=== PATIENT | female | born 1945 | race Caucasian/White ===

== ENCOUNTER 2019-12-20 06:36 | Inpatient (IN) | payer OTHER, MEDICARE ==
--- NOTE | 2019-12-20 07:48 | PDOC ---
History of Present Illness - General Chief Complaint: Pain, Acute Stated Complaint: R ARM NUMBNESS Time Seen by Provider: 12/20/19 07:13 - History of Present Illness Initial Comments: 12/20/19 07:47 74yo F with PMH HTN, HLD, GERD, migranes with aura, fibromyalgia, costochondritis, anxiety, presents follow an episode this morning of right arm numbness, left facial droop, and difficulty speaking, since resolved. Still complains of right hand numbness. She states she awoke at 6 and noticed her right arm was weak. She took a sip of water and it dibbled out of her mouth. She also had difficulty speaking. She has a stroke magnet on her fridge and decided to come to the hospital. Denies headache, chest pain, palpitations. States her aura is different -- she sees squiggles. PMH: as above PSH: hysterectomy Home Medications Medication Instructions Recorded Amlodipine Besylate [Norvasc -] 0 mg PO DAILY 12/20/19 Aspirin 81 mg PO Q4HWA 12/20/19 Atorvastatin Ca [Lipitor] 0 mg PO HS 12/20/19 Pantoprazole Sodium [Protonix] 40 mg PO PRN 12/20/19 Allergies Allergy/AdvReac Type Severity Reaction Status Date / Time No Known Allergies Allergy Verified 12/20/19 06:55 PCP: Eddie (not on staff) ROS GENERAL/CONSTITUTIONAL: No fever or chills. No weakness. HEAD, EYES, EARS, NOSE AND THROAT: No change in vision. No ear pain or discharge. No sore throat. CARDIOVASCULAR: No chest pain or shortness of breath RESPIRATORY: No cough, wheezing, or hemoptysis. GASTROINTESTINAL: No nausea, vomiting, diarrhea or constipation. GENITOURINARY: No dysuria, frequency, or change in urination. MUSCULOSKELETAL: No joint or muscle swelling or pain. No neck or back pain. SKIN: No rash NEUROLOGIC: right arm numbness, facial droop, and difficulty speaking ENDOCRINE: No increased thirst. No abnormal weight change HEMATOLOGIC/LYMPHATIC: No anemia, easy bleeding, or history of blood clots. ALLERGIC/IMMUNOLOGIC: No hives or skin allergy. PE GENERAL: Awake, alert, and fully oriented, in no acute distress HEAD: No signs of trauma, normocephalic, atraumatic EYES: PERRLA, EOMI, sclera anicteric, conjunctiva clear ENT: Auricles normal inspection, hearing grossly normal, nares patent, oropharynx clear without exudates. Moist mucosa NECK: Normal ROM, supple, no lymphadenopathy, JVD, or masses LUNGS: No distress, speaks full sentences, clear to auscultation bilaterally HEART: Regular rate and rhythm, normal S1 and S2, no murmurs, rubs or gallops, peripheral pulses normal and equal bilaterally. ABDOMEN: Soft, nontender, normoactive bowel sounds. No guarding, no rebound. No masses EXTREMITIES : Normal inspection, Normal range of motion, no edema. No clubbing or cyanosis. NEUROLOGICAL: Cranial nerves II through XII grossly intact. Normal speech, normal gait, no focal sensorimotor deficits. Reduced sensation on right palmar and dorsal first-third digits. Normal strength, normal sensation proximally. SKIN: Warm, Dry, normal turgor, no rashes or lesions noted Vital Signs Temp Pulse Resp BP Pulse Ox 98.3 F 108 H 18 142/90 99 12/20/19 06:52 12/20/19 06:52 12/20/19 06:52 12/20/19 06:52 12/20/19 06:52 MDM: 74yo F with PMH HTN, HLD, GERD, migranes with aura, fibromyalgia, costochondritis, anxiety, presents follow an episode this morning of right arm numbness, facial droop, and difficulty speaking, since resolved. Still complains of right hand numbness, and has reduced sensation on right palmar and dorsal first-third digits. NIH stroke scale 0, last known well was last night at 10:30pm. Recent brain MRI for hearing complaint shows evidence of cerebrovascular disease. DDx includes TIA, periferal nerve palsy, ICH, anxiety -CT head -EKG, CXR, CBC, CMP, coags, lipids -neuro consult 12/20/19 08:41 EKG: NSR, rate 75, normal axis, LVH, poor r-wave progression, no ischemic ST-T wave changes Labs: no acute abnormalities CXR: no acute pathology CT head: microvascular changes, but no acute pathology 12/20/19 09:50 Signed out to admitting attending who accepted the patient. 12/20/19 09:[address] Foley who recommends daily aspirin and MRI brain w/o contrast (stroke protocol). Patient has not taken her meds this morning, so will order for aspirin 81 and atorvastain 80 NIH Stroke Scale - Last Known Well Date/Time & Onset Date Last Known Well: 12/19/19 Time Last Known Well: 10:30 - Initial Evaluation Level of consciousness: Alert Ask patient the month and their age: Answers both correctly Ask patient to open & close eyes; make fist and let go: Obeys both correctly Best gaze (horizontal eye movement): Normal Visual field testing: No visual field loss Facial paresis (Show teeth/raise eyebrows/close eyes tight): Normal symmetrical movement Motor Function: Left Arm: Normal Motor Function: Right Arm: Normal (extends arm 90 (or 45) degrees for 10 seconds without drift Motor Function: Left Leg: Normal (extends leg 30 degrees for 5 seconds without drift) Motor Function: Right Leg: Normal (extends leg 30 degrees for 5 seconds without drift) Limb Ataxia: No ataxia Sensory(Use pinprick test arms,legs,trunk,face/side to side): Normal Best language (Describe picture, name items, read sentences): No Aphasia Dysarthria (read several words): Normal articulation Extinction and Inattention: No abnormality - Total Score NIH Stroke Scale Score: 0 Past History - Medical History Allergies/Adverse Reactions: Allergies Allergy/AdvReac Type Severity Reaction Status Date / Time No Known Allergies Allergy Verified 12/20/19 06:55 Home Medications: Ambulatory Orders Amlodipine Besylate [Norvasc -] 0 mg PO DAILY 12/20/19 Aspirin 81 mg PO Q4HWA 12/20/19 Atorvastatin Ca [Lipitor] 0 mg PO HS 12/20/19 Pantoprazole Sodium [Protonix] 40 mg PO PRN 12/20/19 COPD: No HTN: Yes Hypercholesterolemia: Yes - Immunization History Immunization Up to Date: No - Psycho-Social/Smoking History Smoking History: Never smoked Information on smoking cessation initiated: No - Substance Abuse Hx (Audit-C & DAST Scrn) How often the patient has a drink containing alcohol: Never Score: In Men: 4 or > Positive; In Women: 3 or > Positive: 0 Screen Result (Pos requires Nsg. Audit-10AR): Negative In the last yr the pt used illegal drug/Rx for NonMed reason: No Score: Yes response is considered Positive: 0 Screen Result (Positive result requires Nsg. DAST-10): Negative *Physical Exam - Vital Signs Last Vital Signs Temp Pulse Resp BP Pulse Ox 98.3 F 108 H 18 142/90 99 12/20/19 06:52 12/20/19 06:52 12/20/19 06:52 12/20/19 06:52 12/20/19 06:52 ED Treatment Course - LABORATORY CBC & Chemistry Diagram: 12/20/19 08:05 12/20/19 08:05 - RADIOLOGY Radiology Studies Ordered: Category Date Time Status HEAD CT (STROKE) [CT] Stat CT Scan 12/20/19 07:40 Ordered CXR [CHEST PA & LAT] [RAD] Stat Radiology 12/20/19 07:45 Ordered Discharge - Discharge Information Problems reviewed: Yes Clinical Impression/Diagnosis: TIA (transient ischemic attack) Condition: Fair - Admission Yes - Follow up/Referral - Patient Discharge Instructions - Post Discharge Activity
--- NOTE | 2019-12-20 08:38 | PDOC ---
Attending Attestation - Resident Resident Name: [email or web address] - ED Attending Attestation I have performed the following: I have examined & evaluated the patient, The case was reviewed & discussed with the resident, I agree w/resident's findings & plan - HPI HPI: 12/20/19 08:33 74-year-old female with history of hypertension, high cholesterol, anxiety presents with concern for TIA/CVA this morning. Patient was in her usual state of normal health until last night around 10:30 PM, when she went to sleep. Patient awoke around 6 AM, initially noticed some difficulty swallowing, then stood up to go to the restroom to get some water and felt a right arm numbness/heaviness, when she was drinking water she felt asymmetry in her face and the water was spilling out of her mouth, she went to call her and was unable to speak. She recognized this is concerning for a stroke so they presented to the hospital, where symptoms resolved just prior to arrival. The entire episode lasted about 30 minutes. No history of same, she did have MRI on 10/27/2019 in the setting of hearing disturbance, that MRI noted scattered microvascular ischemic disease without acute infarct at the time. Patient denies any headache or vision changes, denies any nausea or vomiting, has no complaints at this time other than slight residual tingling in the ulnar nerve distribution of her right hand. - Physicial Exam PE: 12/20/19 08:35 Vital signs stable Well-appearing lying comfortably in stretcher, slightly anxious but in no acute distress Pupils are equal reactive to light, extraocular movements are intact Neck is supple Heart is regular Neurological exam is nonfocal - Medical Decision Making 12/20/19 08:36 74-year-old female with TIA/CVA type symptoms upon awakening this morning at 6 AM, last known normal about 8 hours prior to that. Symptoms have completely resolved with NIHSS of 0 at this time. Given complete resolution of symptoms and no neurological deficits, patient is not candidate for TPA or mechanical thrombectomy. Patient did have echo and nuclear stress with Dr. Nolasco this year. Stroke protocol initiated Neurology consulted We will need admission for complete stroke work-up and optimization of medications. Heart Score/ECG Review #1 ECG reviewed & interpreted by me at: 08:59 General ECG Interpretation: Sinus Rhythm, Normal Rate (75), Normal Intervals (qtc 442, LVH), No acute ischemic changes (? anterior infarct with prwp, no ST/T changes) Discharge - Discharge Information Problems reviewed: Yes Clinical Impression/Diagnosis: TIA (transient ischemic attack) Condition: Fair - Follow up/Referral - Patient Discharge Instructions - Post Discharge Activity
[2019-12-20 08:45] LABS: INR 0.92 (0.83-1.09); PROTHROMBIN TIME (PATIENT) 10.8 SEC (9.7-13.0)
[2019-12-20 08:48] LABS: ACTIVATED PTT 29.5 SECONDS (25.2-36.5)
[2019-12-20 08:54] LABS: BASO % 0.6 % (0-2.0); EOS % 3.5 % (0-4.5); HEMATOCRIT 44.3 % (32.4-45.2); HEMOGLOBIN 14.8 GM/dL (10.7-15.3); LYMPH % 23.3 % (8-40); MCH 28.9 pg (25.7-33.7); MCHC 33.4 g/dl (32.0-36.0); MEAN CELL VOLUME 86.6 fl (80-96); MEAN PLT VOLUME 6.9 fl (7.5-11.1); MONO % 7.4 % (3.8-10.2); NEUT % 65.2 % (42.8-82.8); PLATELET COUNT 310 K/MM3 (134-434); RBC 5.11 M/mm3 (3.60-5.2); RDW 13.7 % (11.6-15.6); WHITE BLOOD COUNT 7.8 K/mm3 (4.0-10.0)
[2019-12-20 09:10] LABS: ALBUMIN 3.7 g/dl (3.4-5.0); ALK PHOS 104 U/L (45-117); ANION GAP 6 MMOL/L (8-16); BILIRUBIN,TOTAL 0.8 mg/dL (0.2-1); BLOOD UREA NITROGEN 14.2 mg/dL (7-18); CHLORIDE 111 mmol/L (98-107); CHOLESTEROL 169 mg/dL (50-200); CO2 27 mmol/L (21-32); CREATININE 0.9 mg/dL (0.55-1.3); GLUCOSE,RANDOM 95 mg/dL (74-106); HDL CHOLESTEROL 52 mg/dL (40-60); LDL CHOLESTEROL (ONLY SJRH) 103 mg/dL (5-100); POTASSIUM 4.3 mmol/L (3.5-5.1); SGOT/AST 52 U/L (15-37); SGPT/ALT 28 U/L (13-61); SODIUM 144 mmol/L (136-145); TOT PROT 7.4 g/dl (6.4-8.2); TRIGLYCERIDES 99 mg/dL (0-150)
--- NOTE | 2019-12-20 10:01 | HP ---
Admitting History and Physical - Admission Chief Complaint: Acute right arm numbness, facial droop and difficulty in spea jamie History of Present Illness: This 74 yr old w/f with PMH of HTN, HLD, GERD, migraine with aura, fibromyalgia, costochondritis, anxiety admitted with an acute right sided weakness, left facial droop and difficulty in speaking. 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 Cardiovascular: Yes: HTN, Hyperlipdemia Pulmonary: No: Asthma, Bronchitis, Cancer, COPD, O2 Dependent, Pneumonia, Previously Intubated, Pulmonary Embolus, Pulmonary Fibrosis, Sleep Apnea, Other Gastrointestinal: Yes: GERD Hepatobiliary: No: Cirrhosis, Cholelithiasis, Cholecystitis, Choledocholithiasis, Hepatitis A, Hepatitis B, Hepatitis C, Other Renal/: No: Renal Failure, Renal Inusuff, BPH, Cancer, Hematuria, Hemodialysis, Neurogenic Bladder, Renal Calculi, UTI, Other Reproductive: No: Ectopic , Endometriosis, Fibroids, PID, Polycystic Ovary Syndrome, Postmenopausal, Other Heme/Onc: No: Anemia, B12 Deficiency, Bleeding Disorder, Cancer, Current Chemotherapy, Current Radiation Therapy, Hemochromatosis, Hypercoaguable State, Myeloproliferative Synd, Sickle Cell Disease, Sickle Cell Trait, Thrombocytopenia, Other Infectious Disease: No: AIDS, C-Diff, Herpes Zoster, HIV, MRSA, STD's, Tuberculosis, VREF, Other Psych: Yes: Anxiety Musculoskeletal: No: Bursitis, Chronic low back pain, Hemiparesis, Hemiplegia, Osteoarthritis, Paraplegia, Other Rheumatology: Yes: Fibromyalgia ENT: No: Allergic Rhinitis, Sinusitis, Other Endocrine: No: Tom's Disease, [place]'s Disease, Diabetes Insipidus, Diabetes Mellitus, Hyperparathyroidism, Hyperthyroidism, Hypothyroidism, Osteopenia, SIADH, Other Dermatology: No: Basal Cell, Cellulitis, Eczema, Melanoma, Psoriasis, Squamous Cell, Other - Past Surgical History Past Surgical History: Yes: Hysterectomy (total), Tonsillectomy - Advance Directives Advance Directives: No: Living Will, Health Care Proxy, DNR, Organ Donor, Tissue Donor, MOLST - Smoking History Smoking history: Never smoked - Social History Usual Living Arrangement: Yes: With Spouse Home Medications - Allergies Allergies/Adverse Reactions: Allergies Allergy/AdvReac Type Severity Reaction Status Date / Time No Known Allergies Allergy Verified 09/22/20 06:55 - Home Medications Home Medications: Ambulatory Orders Amlodipine Besylate [Norvasc -] 0 mg PO DAILY 12/20/19 Aspirin 81 mg PO Q4HWA 12/20/19 Atorvastatin Ca [Lipitor] 0 mg PO HS 12/20/19 Pantoprazole Sodium [Protonix] 40 mg PO PRN 12/20/19 Review of Systems - Review of Systems Constitutional: reports: Weakness (right sided weakness) Eyes: reports: No Symptoms HENT: reports: No Symptoms Neck: reports: Stiffness Cardiovascular: reports: No Symptoms Respiratory: reports: No Symptoms Gastrointestinal: reports: No Symptoms Genitourinary: reports: No Symptoms Breasts: reports: No Symptoms Reported Musculoskeletal: reports: Muscle Weakness (right arm weakness) Integumentary: reports: No Symptoms Neurological: reports: Change in Speech, Numbness (right hand), Weakness (right arm) Endocrine: reports: No Symptoms Hematology/Lymphatic: reports: No Symptoms Psychiatric: reports: Anxiety Physical Examination Vital Signs: Vital Signs Temperature 98.3 F 12/20/19 06:52 Pulse Rate 108 H 12/20/19 06:52 Respiratory Rate 18 12/20/19 06:52 Blood Pressure 142/90 12/20/19 06:52 O2 Sat by Pulse Oximetry (%) 99 12/20/19 06:52 Constitutional: Yes: Well Nourished, No Distress, Anxious Eyes: Yes: Conjunctiva Clear, EOM Intact HENT: Yes: Atraumatic, Normocephalic Neck: Yes: Supple, Trachea Midline Cardiovascular: Yes: Regular Rate and Rhythm Respiratory: Yes: Regular, CTA Bilaterally Gastrointestinal: Yes: Normal Bowel Sounds, Soft ...Rectal Exam: Yes: Deferred Renal/: Yes: WNL Breast(s): Yes: WNL Musculoskeletal: Yes: Muscle Weakness (right arm) Extremities: Yes: WNL Edema: Yes Edema: LLE: Trace, RLE: Trace Peripheral Pulses WNL: Yes Integumentary: Yes: WNL Neurological: Yes: Alert, Oriented, Facial Droop (left), Numbness (right hand), Weakness (right arm) ...Motor Strength: RUE (right arm weakness) Psychiatric: Yes: Alert, Oriented Labs: CBC, BMP 12/20/19 08:05 12/20/19 08:05 Imaging - Results Chest X-ray: Report Reviewed Cat Scan: Report Reviewed Other: Report Reviewed (lab data reviewed) Problem List - Problems (1) Facial droop due to acute stroke Code(s): I63.9 - CEREBRAL INFARCTION, UNSPECIFIED; R29.810 - FACIAL WEAKNESS (3) Right arm weakness Code(s): R29.898 - OTH SYMPTOMS AND SIGNS INVOLVING THE MUSCULOSKELETAL SYSTEM (4) TIA (transient ischemic attack) Code(s): G45.9 - TRANSIENT CEREBRAL ISCHEMIC ATTACK, UNSPECIFIED (5) Essential (primary) hypertension Code(s): I10 - ESSENTIAL (PRIMARY) HYPERTENSION (6) HLD (hyperlipidemia) Code(s): E78.5 - HYPERLIPIDEMIA, UNSPECIFIED (7) Migraine with aura Code(s): G43.109 - MIGRAINE WITH AURA, NOT INTRACTABLE, W/O STATUS MIGRAINOSUS (8) Fibromyalgia Code(s): M79.7 - FIBROMYALGIA (9) History of tonsillectomy Code(s): Z90.89 - ACQUIRED ABSENCE OF OTHER ORGANS (10) History of total hysterectomy with bilateral salpingo-oophorectomy (BSO) Code(s): Z90.710 - ACQUIRED ABSENCE OF BOTH CERVIX AND UTERUS; Z90.722 - ACQUIRED ABSENCE OF OVARIES, BILATERAL; Z90.79 - ACQUIRED ABSENCE OF OTHER GENITAL ORGAN(S) (11) Numbness of right hand Code(s): R20.0 - ANESTHESIA OF SKIN Assessment/Plan Assessment/plan: acute stroke with left facial droop, difficulty in speaking, right arm weakness, and numbness of the right hand, HTN, HLD, migraine with aura, fibromyalgia, anxiety; ct scan of the head shows moderate periventricular chronic microvascular changes; carotid duplex scan; SQ Lovenox, aspirin, and atorvastatin for acute stroke; SQ Lovenox aspirin and oral pantoprazole for DVT/GI prophlaxis; alprazolam for anxiety; consult to Neurology; stroke rehab, EARLENE stockings.
[2019-12-20] MEDS ORDERED: ASPIRIN 81 MG CHEWABLE TABLETS PO ONE (10:04)
[2019-12-20] MEDS ORDERED: ATORVASTATIN CA 80 MG TABLET (FP) PO ONE (10:04)
[2019-12-20] MEDS ORDERED: ALPRAZolam 0.25 MG TABLET ONE (10:27)
[2019-12-20] MEDS ORDERED: ATORVASTATIN CA 80 MG TABLET (FP) ONE (10:27)
[2019-12-20] MEDS ORDERED: ASPIRIN 81 MG CHEWABLE TABLETS ONE (10:27)
[2019-12-20] MEDS: ALPRAZolam 1 MG TABLET PO ONE ×2 (10:32)
[2019-12-20] MEDS ORDERED: amLODIPine BESYLATE 5 MG TABLET (FP) ONE (11:58)
[2019-12-20] MEDS ORDERED: ENOXAPARIN NA (PORCINE) 40 MG/0.4 ML DISP.SYRIN SQ ONE (11:59)
[2019-12-20] MEDS ORDERED: ENOXAPARIN NA (PORCINE) 40 MG/0.4 ML DISP.SYRIN SQ SCH (12:00)
[2019-12-20] MEDS: PANTOPRAZOLE 40 MG TABLET PO SCH ×2 (12:22→12:35)
[2019-12-20] MEDS: amLODIPine BESYLATE 5 MG TABLET (FP) PO SCH (12:22)
[2019-12-20] MEDS ORDERED: ACETAMINOPHEN 325 MG TABLET (FP) PO PRN (20:47)
[2019-12-20] MEDS: ALPRAZolam 0.25 MG TABLET PO PRN (21:13)
[2019-12-21 02:57] VITALS: BMI 27.2
[2019-12-21] MEDS ORDERED: CLOPIDOGREL BISULFATE 300 MG TABLET PO ONE (06:17)
[2019-12-21 06:37] LABS: BASO % 0.9 % (0-2.0); EOS % 6.9 % (0-4.5); HEMATOCRIT 40.3 % (32.4-45.2); HEMOGLOBIN 13.9 GM/dL (10.7-15.3); LYMPH % 38.4 % (8-40); MCH 30.1 pg (25.7-33.7); MCHC 34.5 g/dl (32.0-36.0); MEAN CELL VOLUME 87.2 fl (80-96); MEAN PLT VOLUME 7.1 fl (7.5-11.1); MONO % 12.1 % (3.8-10.2); NEUT % 41.7 % (42.8-82.8); PLATELET COUNT 277 K/MM3 (134-434); RBC 4.62 M/mm3 (3.60-5.2); RDW 13.9 % (11.6-15.6); WHITE BLOOD COUNT 6.1 K/mm3 (4.0-10.0)
[2019-12-21 06:51] LABS: ALBUMIN 3.2 g/dl (3.4-5.0); BILIRUBIN,TOTAL 0.8 mg/dL (0.2-1); BLOOD UREA NITROGEN 17.3 mg/dL (7-18); CALCIUM 8.8 mg/dL (8.5-10.1); CREATININE 0.9 mg/dL (0.55-1.3); POTASSIUM 3.6 mmol/L (3.5-5.1); TOT PROT 6.4 g/dl (6.4-8.2)
--- NOTE | 2019-12-21 08:37 | PN ---
Progress Note, Physician Chief Complaint: Patient seen and examined at the bedside, no acute events from last night, afebrile, left facial droop less noticeable. History of Present Illness: This 74 yr old w/f with PMH of HTN, HLD, fibromyalgia, anxiety, migraine with aura, GERD admitted via ER with an acute TIA, right arm weakness, numbness of the right hand, left facial droop and difficulty in speaking. - Current Medication List Current Medications: Active Medications Acetaminophen (Tylenol -) 650 mg PO Q6H PRN PRN Reason: PAIN LEVEL 1-5 Last Admin: 12/20/19 21:13 Dose: 650 mg Documented by: Alprazolam (Xanax -) 0.25 mg PO Q8H PRN PRN Reason: ANXIETY Last Admin: 12/20/19 21:13 Dose: 0.25 mg Documented by: Amlodipine Besylate (Norvasc -) 5 mg PO DAILY [facility] Last Admin: 12/20/19 12:22 Dose: 5 mg Documented by: Aspirin (Ecotrin -) 81 mg PO DAILY [facility] Atorvastatin Calcium (Lipitor -) 80 mg PO HS [facility] Clopidogrel Bisulfate (Plavix -) 75 mg PO DAILY [facility] - Objective Vital Signs: Vital Signs Temperature 98.5 F 12/21/19 06:00 Pulse Rate 64 12/21/19 06:00 Respiratory Rate 18 12/21/19 06:00 Blood Pressure 123/61 12/21/19 06:00 O2 Sat by Pulse Oximetry (%) 96 12/21/19 06:00 Constitutional: Yes: Well Nourished, No Distress, Anxious Eyes: Yes: Conjunctiva Clear, EOM Intact HENT: Yes: Atraumatic, Normocephalic Neck: Yes: Supple, Trachea Midline Cardiovascular: Yes: Regular Rate and Rhythm Respiratory: Yes: Regular, CTA Bilaterally Gastrointestinal: Yes: Normal Bowel Sounds, Soft ...Rectal Exam: Yes: Deferred Genitourinary: Yes: WNL Breast(s): Yes: WNL Musculoskeletal: Yes: Muscle Weakness Extremities: Yes: WNL Edema: No Peripheral Pulses WNL: Yes Integumentary: Yes: WNL Neurological: Yes: Alert, Facial Droop (left), Unsteady Gait, Weakness ...Motor Strength: LLE (muscle weakness), RLE (muscle weakness) Psychiatric: Yes: Alert Labs: CBC, BMP 09/23/20 05:15 12/21/19 05:15 INR, PTT INR 0.92 (0.83-1.09) 12/20/19 08:05 - ....Imaging Other: Report Reviewed (lab data reviewed) Problem List - Problems (1) Facial droop due to acute stroke Code(s): I63.9 - CEREBRAL INFARCTION, UNSPECIFIED; R29.810 - FACIAL WEAKNESS (3) Right arm weakness Code(s): R29.898 - OTH SYMPTOMS AND SIGNS INVOLVING THE MUSCULOSKELETAL SYSTEM (4) TIA (transient ischemic attack) Code(s): G45.9 - TRANSIENT CEREBRAL ISCHEMIC ATTACK, UNSPECIFIED (5) Essential (primary) hypertension Code(s): I10 - ESSENTIAL (PRIMARY) HYPERTENSION (6) HLD (hyperlipidemia) Code(s): E78.5 - HYPERLIPIDEMIA, UNSPECIFIED (7) Migraine with aura Code(s): G43.109 - MIGRAINE WITH AURA, NOT INTRACTABLE, W/O STATUS MIGRAINOSUS (8) Fibromyalgia Code(s): M79.7 - FIBROMYALGIA (9) History of tonsillectomy Code(s): Z90.89 - ACQUIRED ABSENCE OF OTHER ORGANS (10) History of total hysterectomy with bilateral salpingo-oophorectomy (BSO) Code(s): Z90.710 - ACQUIRED ABSENCE OF BOTH CERVIX AND UTERUS; Z90.722 - ACQUIRED ABSENCE OF OVARIES, BILATERAL; Z90.79 - ACQUIRED ABSENCE OF OTHER GENITAL ORGAN(S) (11) Numbness of right hand Code(s): R20.0 - ANESTHESIA OF SKIN Assessment/Plan Assessment/plan: aspirin clopidogrel and atorvastatin for acute stroke (8mm focus of acute/subacute cortical small vessel infarction of the left parietal lobe), multiple foci of chronic small vessel infarction in the periventricular white matter, HTN, HLD, GERD, anxiety, fibromyalgia; EARLENE stockings; tylenol for migraine; stroke rehab; amlodipine for HTN; atorvastatin for HLD; alprazolam for anxiety, aspiration precautions.
--- NOTE | 2019-12-21 08:42 | CONSULT ---
Consult - text type - Consultation Consultation Note: Neurology Chief Complaint: Acute right arm numbness, facial droop and difficulty in speaking History of Present Illness: This 74 yr old w/f with PMH of HTN, HLD, GERD, migraine with aura, fibromyalgia, costochondritis, anxiety admitted with an acute right sided weakness, left facial droop and difficulty in speaking. Head Ct was performed and demonstrated no evidence of acute intracranial pathology and moderate periventricular chronic microvascular changes. MRI of brain completed and showed generalized volume loss. WM chronic small vessels disease. 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 There is no hemorrhage. Carotid U/S also completed and demonstrated mild atherosclerotid disease w/o HD stenosis. Patient is very anxious aat baseline and discussed with her pathophysiology of infarct which seems to be small vessel and likely atherosclerotic. Workup is completed to rule out possible embolic phenomenon but based on size and location seems to be more likely localized small vessel infarct. She was taking aspirin only 3 times a week and advised her that she should be taking aspirindaily for stroke prevention. She reported receiving Plavix this morning which may not be needed, my recommendation is for daily aspirin. We had an extensive conversation about her anxiety as this is likely elevating her blood pressure and I recommended continued monitoring and ideally improvement of the her underlying condition. - Past Medical History [employer]IL[employer] ACTOR: Yes: Migraine Cardiovascular: Yes: HTN, Hyperlipdemia Pulmonary: No: Asthma, Bronchitis, Cancer, COPD, O2 Dependent, Pneumonia, Previously Intubated, Pulmonary Embolus, Pulmonary Fibrosis, Sleep Apnea, Other Gastrointestinal: Yes: GERD Hepatobiliary: No: Cirrhosis, Cholelithiasis, Cholecystitis, Choledocholithiasis, Hepatitis A, Hepatitis B, Hepatitis C, Other Renal/: No: Renal Failure, Renal Inusuff, BPH, Cancer, Hematuria, Hemodialysis, Neurogenic Bladder, Renal Calculi, UTI, Other Reproductive: No: Ectopic , Endometriosis, Fibroids, PID, Polycystic Ovary Syndrome, Postmenopausal, Other Heme/Onc: No: Anemia, B12 Deficiency, Bleeding Disorder, Cancer, Current Chemotherapy, Current Radiation Therapy, Hemochromatosis, Hypercoaguable State, Myeloproliferative Synd, Sickle Cell Disease, Sickle Cell Trait, Thrombocytopenia, Other Infectious Disease: No: AIDS, C-Diff, Herpes Zoster, HIV, MRSA, STD's, Tuberculosis, VREF, Other Psych: Yes: Anxiety Musculoskeletal: No: Bursitis, Chronic low back pain, Hemiparesis, Hemiplegia, Osteoarthritis, Paraplegia, Other Rheumatology: Yes: Fibromyalgia ENT: No: Allergic Rhinitis, Sinusitis, Other Endocrine: No: [place]'s Disease, Anthony's Disease, Diabetes Insipidus, Diabetes Mellitus, Hyperparathyroidism, Hyperthyroidism, Hypothyroidism, Osteopenia, SIADH, Other Dermatology: No: Basal Cell, Cellulitis, Eczema, Melanoma, Psoriasis, Squamous Cell, Other - Past Surgical History Past Surgical History: Yes: Hysterectomy (total), Tonsillectomy - Smoking History Smoking history: Never smoked - Social History Usual Living Arrangement: Yes: With Spouse Family: HTN Review of Systems - Review of Systems Constitutional: reports: Weakness (right sided weakness) Eyes: reports: No Symptoms HENT: reports: No Symptoms Neck: reports: Stiffness Cardiovascular: reports: No Symptoms Respiratory: reports: No Symptoms Gastrointestinal: reports: No Symptoms Genitourinary: reports: No Symptoms Breasts: reports: No Symptoms Reported Musculoskeletal: reports: Muscle Weakness (right arm weakness) Integumentary: reports: No Symptoms Neurological: reports: Change in Speech, Numbness (right hand), Weakness (right arm) Endocrine: reports: No Symptoms Hematology/Lymphatic: reports: No Symptoms Psychiatric: reports: Anxiety Home Medications - Allergies Allergies/Adverse Reactions: Allergies Allergy/AdvReac Type Severity Reaction Status Date / Time No Known Allergies Allergy Verified 12/20/19 06:55 - Home Medications Home Medications: Ambulatory Orders Amlodipine Besylate [Norvasc -] 0 mg PO DAILY 12/20/19 Aspirin 81 mg PO Q4HWA 12/20/19 Atorvastatin Ca [Lipitor] 0 mg PO HS 12/20/19 Pantoprazole Sodium [Protonix] 40 mg PO PRN 12/20/19 Active Medications Acetaminophen (Tylenol -) 650 mg PO Q6H PRN PRN Reason: PAIN LEVEL 1-5 Last Admin: 12/20/19 21:13 Dose: 650 mg Documented by: Alprazolam (Xanax -) 0.25 mg PO Q8H PRN PRN Reason: ANXIETY Last Admin: 12/20/19 21:13 Dose: 0.25 mg Documented by: Amlodipine Besylate (Norvasc -) 5 mg PO DAILY K[place]BER[place] Last Admin: 12/20/19 12:22 Dose: 5 mg Documented by: Aspirin (Ecotrin -) 81 mg PO DAILY KIMBER[place] Atorvastatin Calcium (Lipitor -) 80 mg PO HS K[place] Clopidogrel Bisulfate (Plavix -) 75 mg PO DAILY [facility] Physical Examination Vital Signs: Vital Signs Period Temp Pulse Resp BP Sys/Espinoza Pulse Ox Last 24 Hr 97.6 F-98.5 F 64-84 16-18 123-150/61-87 96-99 Constitutional: Yes: Well Nourished, No Distress, Anxious Eyes: Yes: Conjunctiva Clear, EOM Intact HENT: Yes: Atraumatic, Normocephalic Neck: Yes: Supple, Trachea Midline Cardiovascular: Yes: Regular Rate and Rhythm Respiratory: Yes: Regular, CTA Bilaterally Gastrointestinal: Yes: Normal Bowel Sounds, Soft ...Rectal Exam: Yes: Deferred Renal/: Yes: WNL Breast(s): Yes: WNL Musculoskeletal: Yes: Muscle Weakness (right arm) Extremities: Yes: WNL Edema: Yes Edema: LLE: Trace, RLE: Trace Peripheral Pulses WNL: Yes Integumentary: Yes: WNL Neurological: CN appear intact, face appears symetric, subjective numbness in the right hand, strength intact bilaterally in upper and lower extremities, finger-nose normal Psychiatric: Yes: Alert, Oriented Labs: CBCD WBC 6.1 K/mm3 (4.0-10.0) 12/21/19 05:15 RBC 4.62 M/mm3 (3.60-5.2) 12/21/19 05:15 Hgb 13.9 GM/dL (10.7-15.3) 12/21/19 05:15 Hct 40.3 % (32.4-45.2) 12/21/19 05:15 MCV 87.2 fl (80-96) 12/21/19 05:15 MCHC 34.5 g/dl (32.0-36.0) 12/21/19 05:15 RDW 13.9 % (11.6-15.6) 12/21/19 05:15 Plt Count 277 K/MM3 (134-434) 12/21/19 05:15 MPV 7.1 fl (7.5-11.1) L 12/21/19 05:15 CMP Sodium 142 mmol/L (136-145) 12/21/19 05:15 Potassium 3.6 mmol/L (3.5-5.1) 12/21/19 05:15 Chloride 108 mmol/L (98-107) H 12/21/19 05:15 Carbon Dioxide 28 mmol/L (21-32) 12/21/19 05:15 Anion Gap 7 MMOL/L (8-16) L 12/21/19 05:15 BUN 17.3 mg/dL (7-18) 12/21/19 05:15 Creatinine 0.9 mg/dL (0.55-1.3) 12/21/19 05:15 Random Glucose 90 mg/dL (74-106) 12/21/19 05:15 Calcium 8.8 mg/dL (8.5-10.1) 12/21/19 05:15 Total Bilirubin 0.8 mg/dL (0.2-1) 12/21/19 05:15 AST 39 U/L (15-37) H 12/21/19 05:15 ALT 22 U/L (13-61) 12/21/19 05:15 Alkaline Phosphatase 91 U/L (45-117) 12/21/19 05:15 Total Protein 6.4 g/dl (6.4-8.2) 12/21/19 05:15 Albumin 3.2 g/dl (3.4-5.0) L 12/21/19 05:15 CARDIAC ENZYMES Creatine Kinase 102 U/L (26-192) 12/20/19 08:05 Troponin I < 0.02 ng/ml (0.00-0.05) 12/20/19 08:05 Assessment/Plan 74 yr old w/f with PMH of HTN, HLD, GERD, migraine with aura, fibromyalgia, costochondritis, anxiety admitted with an acute right sided weakness, left facial droop and difficulty in speaking. Head Ct was performed and demonstrated no evidence of acute intracranial pathology and moderate periventricular chronic microvascular changes. MRI of brain completed and showed generalized volume loss. WM chronic small vessels disease. 8mm acute/subacute cortical small ves sels infarction of left parietal lobe. There is no hemorrhage. Carotid U/S also completed and demonstrated mild atherosclerotid disease w/o HD stenosis. Patient is very anxious aat baseline and discussed with her pathophysiology of infarct which seems to be small vessel and likely atherosclerotic. Workup is completed to rule out possible embolic phenomenon but based on size and location seems to be more likely localized small vessel infarct. She was taking aspirin only 3 times a week and advised her that she should be taking aspirindaily for stroke prevention. She reported receiving Plavix this morning which may not be needed, my recommendation is for daily aspirin. We had an extensive conversation about her anxiety as this is likely elevating her blood pressure and I recommended continued monitoring and ideally improvement of the her underlying condition. Physical therapy aas tolerated. Medication compliance recommended. Monitor blood pressure, maintain < 160/90 for now. Goal<130/90 as outpatient. Anxiety optimization recommended, takes Xanax.
[2019-12-21] MEDS ORDERED: CLOPIDOGREL BISULFATE 75 MG TABLET (FP) PO SCH (10:00)
--- NOTE | 2019-12-21 10:04 | EKG ---
Test Reason : Blood Pressure : / mmHG Vent. Rate : 075 BPM Atrial Rate : 075 BPM P-R Int : 174 ms QRS Dur : 074 ms QT Int : 396 ms P-R-T Axes : 048 -27 051 degrees QTc Int : 442 ms POOR DATA QUALITY, INTERPRETATION MAY BE ADVERSELY AFFECTED NORMAL SINUS RHYTHM MINIMAL VOLTAGE CRITERIA FOR LVH, MAY BE NORMAL VARIANT ANTERIOR INFARCT , AGE UNDETERMINED ABNORMAL ECG WHEN COMPARED WITH ECG OF 15-JUN-2008 06:44, ANTERIOR INFARCT IS NOW PRESENT Confirmed by Derik High ([id number]) on 12/21/2019 10:03:42 AM Referred By: Confirmed By:Derik High
[2019-12-21] MEDS: ASPIRIN COATED 81 MG TABLET.EC PO SCH (10:15)
[2019-12-21] MEDS: amLODIPine BESYLATE 5 MG TABLET (FP) PO SCH (10:15)
[2019-12-21] MEDS: CYANOCOBALAMIN 1,000 MCG TABLET (FP) PO SCH (10:15)
--- NOTE | 2019-12-21 10:35 | CONSULT ---
Admitting History and Physical - Admission History of Present Illness: 74 yr old w/f with PMH of HTN, HLD, GERD, migraine with aura, fibromyalgia, costochondritis, anxiety admitted with an acute right sided weakness, left facial droop and difficulty in speaking. Head Ct - no evidence of acute intracranial pathology and moderate periventricular chronic microvascular changes. MRI of brain-generalized volume loss. WM chronic small vessels disease. 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 There is no hemorrhage. Carotid U/S -demonstrated mild atherosclerotid disease w/o HD stenosis. Selected Entries 12/21/19 12/21/19 12/21/19 02:00 06:00 10:00 Temperature 98.2 F 98.5 F 98.2 F Pulse Rate 74 64 76 Blood Pressure 130/71 123/61 137/73 O2 Sat by Pulse 96 96 96 Oximetry (%) Laboratory Tests 12/20/19 12/21/19 10:20 05:15 WBC 6.1 COVID-19 (JERAMY) Not detected Reg diet/thin liquid ordered. 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 Cardiovascular: Yes: HTN, Hyperlipdemia Pulmonary: No: Asthma, Bronchitis, Cancer, COPD, O2 Dependent, Pneumonia, Previously Intubated, Pulmonary Embolus, Pulmonary Fibrosis, Sleep Apnea, Other Gastrointestinal: Yes: GERD Hepatobiliary: No: Cirrhosis, Cholelithiasis, Cholecystitis, Choledocholithiasis, Hepatitis A, Hepatitis B, Hepatitis C, Other Renal/: No: Renal Failure, Renal Inusuff, BPH, Cancer, Hematuria, Hemodialysis, Neurogenic Bladder, Renal Calculi, UTI, Other Heme/Onc: No: Anemia, B12 Deficiency, Bleeding Disorder, Cancer, Current Chemotherapy, Current Radiation Therapy, Hemochromatosis, Hypercoaguable State, Myeloproliferative Synd, Sickle Cell Disease, Sickle Cell Trait, Thrombocytopenia, Other Infectious Disease: No: AIDS, C-Diff, Herpes Zoster, HIV, MRSA, STD's, Tuberculosis, VREF, Other Psych: Yes: Anxiety Musculoskeletal: No: Bursitis, Chronic low back pain, Hemiparesis, Hemiplegia, Osteoarthritis, Paraplegia, Other Rheumatology: Yes: Fibromyalgia ENT: No: Allergic Rhinitis, Sinusitis, Other Endocrine: No: [place]'s Disease, Anthony's Disease, Diabetes Insipidus, Diabetes Mellitus, Hyperparathyroidism, Hyperthyroidism, Hypothyroidism, Osteopenia, SIADH, Other Dermatology: No: Basal Cell, Cellulitis, Eczema, Melanoma, Psoriasis, Squamous Cell, Other - Past Surgical History Past Surgical History: Yes: Hysterectomy (total), Tonsillectomy - Advance Directives Advance Directives: No: Living Will, Health Care Proxy, DNR, Organ Donor, Tissue Donor, MOLST - Smoking History Smoking history: Never smoked Have you smoked in the past 12 months: No History - Admission Reason For Visit: TIA - Diagnostics X-ray: Report Reviewed CT Scan: Report Reviewed MRI: Report Reviewed Other: Report Reviewed (12/20/2019 Carotid US - No sig stenosis 12/20/2019 MRI of brain completed and showed generalized volume loss. White matter chronic small vessels disease. 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 There is no hemorrhage 12/20/[address] was performed and demonstrated no evidence of acute intracranial pathology and moderate periventricular chronic microvascular changes.) - General Mental Status: Alert and Oriented, Awake and Alert, Able to Follow Commands Attention: Intact Ability to Follow Directions: Excellent Head/Neck Control: WFL - Hearing Hearing: Impaired, Right Ear Hearing Aide: No Speech Evaluation - Communication Primary Language: IRISH Communication: Yes: Within Normal Limits Oral Expression Ability: Yes: No Impairment - Speech Production Able to Make Needs Known: Yes: WNL Intelligibility: Yes: WNL - Speech Characteristics Voice Loudness: Normal Voice Pitch: Yes: Normal Voice Phonatory-based Quality: Yes: Normal Speech Pattern: Normal Speech Clarity: < 100% Nasal Resonance: Normal Articulation: Yes: Precise - Language/Auditory Comprehension Follows: Yes: 2 Stage Simple Commands Observation: Able to respond to yes/no queries: Yes, Yes/No Confusion: No, Comprehends Conversational Speech: Yes - Language/Verbal Expression Able to Respond to Simple Queries: Yes: WNL Able to Communicate Wants and Needs: Yes: WNL Functional Communication Status: Yes: WNL - Memory/Perception youth care specialist Memory: Yes: WNL Short Term Memory: Yes: WNL - Swallow Evaluation/Bedside Assessment Current Nutritional Intake: Regular, Thin Liquids Oral Secretions: Yes: WFL Dentition: Yes: Adequate Facial Symmetry at Rest: Symmetrical Facial Symmetry on Retraction: Symmetrical Facial Movement: Controlled Sensation: Normal Against Resistance Opening: Normal Against Resistance Closing: Normal Pucker Lips: Normal Smile: Normal Lingual Movement: Normal, Symmetric Lingual Speed of Movement: Normal Lingual Movement Strgth Against Opposition: Normal Lingual Movement Characteristics: Normal Velopharyngeal Movement: Normal Laryngeal Elevation: WFL Laryngeal Movement: Able to Palpate Rate of Intake: WFL Bolus Size: WFL Labial Seal: WFL Chewing: WFL Oral Prep Time: WFL A-P Transit: WFL Pocketing: None Timing of Swallow: WFL Coughing/Throat Clear: No Change in Voice: No Recommendations - Speech Evaluation, Impression/Plan Impression: Pt admitted with expressive Aphasia which has resolved. Speech, language, swallowing,cognition,writing, reading WNL. Pt reports persistent numbness in middle fingers of right hand. She is fearful to drive now and has baseline anxiety. - Dysphagia Impressions/Plan Swallowing Skills: [facility] Dysphagia Impressions: No Impairment *Silent aspiration: cannot be R/O at bedside Dysphagia Treatment Plan: OOB for meals, OOB for 1 h. after meals Recommendations: Other (Consider Psych/Cognitive behavioral tx upon d/c to improve coping mechanisms/manage LT anxiety.) - Recommendations Diet Consistency: Regular Medication Administration: Whole with water Liquids: Thin Liquids
--- NOTE | 2019-12-21 11:49 | CON.CARD ---
Consult Consult Specialty:: Cardiology Referred by:: Informed by patient of stroke admission Reason for Consultation:: Recurrent stroke - History of Present Illness Chief Complaint: Dysarthria, facial droop, right hand weakness History of Present Illness: This 74 yr old w/f with PMH of HTN, HLD, GERD, migraine with aura, fibromyalgia, costochondritis, anxiety admitted with acute right sided weakness, left facial droop and difficulty in speaking since improving. She was taking aspirin only 3 times a week and was advised her that she should be taking aspirin daily for stroke prevention. She denies chest pain, dyspnea, palpitations, near or true syncope, orthopnea, PND, LE edema. Last office visit 05/13/2019. 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 Cardio/Vascular: Yes: HTN, Hyperlipdemia Pulmonary: No: Asthma, Bronchitis, Cancer, COPD, O2 Dependent, Pneumonia, Pre viously Intubated, Pulmonary Embolus, Pulmonary Fibrosis, Sleep Apnea, Other Gastrointestinal: Yes: GERD Hepatobiliary: No: Cirrhosis, Cholelithiasis, Cholecystitis, Choledocholithiasis, Hepatitis A, Hepatitis B, Hepatitis C, Other Renal/: No: Renal Failure, Renal Inusuff, BPH, Cancer, Hematuria, Hemodialysis, Neurogenic Bladder, Renal Calculi, UTI, Other Infectious Disease: No: AIDS, C-Diff, Herpes Zoster, HIV, MRSA, STD's, Tuberculosis, VREF, Other Psych: Yes: Anxiety Musculoskeletal: No: Bursitis, Chronic low back pain, Hemiparesis, Hemiplegia, Osteoarthritis, Paraplegia, Other Rheumatology: Yes: Fibromyalgia ENT: No: Allergic Rhinitis, Sinusitis, Other Endocrine: No: [place]'s Disease, Anthony's Disease, Diabetes Insipidus, Diabetes Mellitus, Hyperparathyroidism, Hyperthyroidism, Hypothyroidism, Osteopenia, SIADH, Other Dermatology: No: Basal Cell, Cellulitis, Eczema, Melanoma, Psoriasis, Squamous Cell, Other - Past Surgical History Past Surgical History: Yes: Hysterectomy (total), Tonsillectomy - Smoking History Smoking history: Never smoked Have you smoked in the past 12 months: No Home Medications - Allergies Allergies/Adverse Reactions: Allergies Allergy/AdvReac Type Severity Reaction Status Date / Time No Known Allergies Allergy Verified 12/20/19 06:55 - Home Medications Home Medications: Ambulatory Orders Amlodipine Besylate [Norvasc -] 0 mg PO DAILY 12/20/19 Aspirin 81 mg PO Q4HWA 12/20/19 Atorvastatin Ca [Lipitor] 0 mg PO HS 12/20/19 Pantoprazole Sodium [Protonix] 40 mg PO PRN 12/20/19 Review of Systems - Review of Systems Neurological: reports: Change in Speech, Weakness Vital Signs: Vital Signs Temperature 98.2 F 12/21/19 10:00 Pulse Rate 76 12/21/19 10:00 Respiratory Rate 12/21/19 10:00 Blood Pressure 137/73 12/21/19 10:00 O2 Sat by Pulse Oximetry (%) 96 12/21/19 10:00 Constitutional: Yes: No Distress, Calm Neck: Yes: Supple Respiratory: Yes: Regular, CTA Bilaterally Gastrointestinal: Yes: Normal Bowel Sounds, Soft Cardiovascular: Yes: Regular Rate and Rhythm JVD: No Carotid Bruit: No Heart Sounds: Yes: S1, S2 Edema: No - Other Data Labs, Other Data: CBC, BMP 12/21/19 05:15 12/21/19 05:15 INR, PTT INR 0.92 (0.83-1.09) 12/20/19 08:05 Imaging - Results Chest X-ray: Report Reviewed (NAD) Ultrasound: Report Reviewed (Neg DVT bilaterally) Problem List - Problems (2) Essential (primary) hypertension Code(s): I10 - ESSENTIAL (PRIMARY) HYPERTENSION (3) Facial droop due to acute stroke Code(s): I63.9 - CEREBRAL INFARCTION, UNSPECIFIED; R29.810 - FACIAL WEAKNESS (4) HLD (hyperlipidemia) Code(s): E78.5 - HYPERLIPIDEMIA, UNSPECIFIED Qualifiers: Hyperlipidemia type: pure hypercholesterolemia Qualified Code(s): E78.00 - Pure hypercholesterolemia, unspecified; E78.0 - Pure hypercholesterolemia (5) Right arm weakness Code(s): R29.898 - OTH SYMPTOMS AND SIGNS INVOLVING THE MUSCULOSKELETAL SYSTEM Assessment/Plan 12/20/2019 Carotid US - No sig stenosis 12/20/2019 MRI of brain completed and showed generalized volume loss. White matter chronic small vessels disease. 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 There is no hemorrhage 12/20/[address] was performed and demonstrated no evidence of acute intracranial pathology and moderate periventricular chronic microvascular changes. 05/24/2019: Carotid US: Mild plaque bilaterally 05/23/2019 Echo: Conclusions: 1. LV size is normal. LV thickness is normal. Left ventricular systolic function is normal. There is grade I diastolic dysfunction (grade I of III); filling pressures are normal. 2. Left atrial size is normal. Right atrial size is normal. 3. Right ventricular size is normal. The right ventricular systolic function is normal. 4. The aortic valve is sclerotic without leaflet restriction. Mild aortic insufficiency is present. Aortic root dimension is normal. The ascending aorta is normal. 5. The mitral valve is structurally normal. Mild mitral regurgitation is present. 6. The tricuspid valve is structurally normal. Mild to moderate tricuspid regurgitation is present. The structure of the pulmonic valve is normal. No significant pulmonary regurgitation is present. 7. No pericardial effusion. 8. The pulmonary artery systolic pressure is at least 27 mmHg based on an RA pressure of 3 mmHg. Clinical Correlation/Compared to previous: Compared to previous study on 01/29/18, there is no significant change. 1. Acute/subacute left parietal stroke - pathophysiology of infarct seems to be small vessel and likely atherosclerotic 2. HTN 3. Hyperlipidemia 4. Migraine with aura, fibromyalgia P:1. Continue Norvasc, ASA, Lipitor, Plavix added 2. strategic communications specialist to evaluate for PAF, if unrevealing, may benefit from longer term arrhythmia monitor 3. Speech and swallow and physical therapy 4. Eventual f/u with Dr. Nolasco in office
[2019-12-21] MEDS: ALPRAZolam 0.25 MG TABLET PO PRN (16:36)
[2019-12-21] MEDS: ATORVASTATIN CA 80 MG TABLET (FP) PO SCH (21:04)
[2019-12-22 06:55] LABS: BASO % 1.1 % (0-2.0); EOS % 7.9 % (0-4.5); HEMATOCRIT 42.3 % (32.4-45.2); HEMOGLOBIN 14.3 GM/dL (10.7-15.3); LYMPH % 40.8 % (8-40); MCH 29.4 pg (25.7-33.7); MCHC 33.9 g/dl (32.0-36.0); MEAN CELL VOLUME 86.8 fl (80-96); MEAN PLT VOLUME 8.1 fl (7.5-11.1); MONO % 10.6 % (3.8-10.2); NEUT % 39.6 % (42.8-82.8); PLATELET COUNT 269 K/MM3 (134-434); RBC 4.87 M/mm3 (3.60-5.2); RDW 13.7 % (11.6-15.6)
[2019-12-22 07:15] LABS: ALBUMIN 3.4 g/dl (3.4-5.0); BLOOD UREA NITROGEN 17.6 mg/dL (7-18); CALCIUM 9.5 mg/dL (8.5-10.1); CREATININE 0.8 mg/dL (0.55-1.3); POTASSIUM 4.7 mmol/L (3.5-5.1)
[2019-12-22 07:43] LABS: BILIRUBIN,TOTAL 1.2 mg/dL (0.2-1)
--- NOTE | 2019-12-22 08:05 | PN ---
Progress Note, Physician Chief Complaint: Patient seen and examined at the bedside, no acute events from last night, afebrile. History of Present Illness: This 74 yr old w/f with PMH of HTN, HLD, fibromyalgia, migraine with aura, GERD, anxiety admitted via ER with an acute right arm weakness, numbness of the right hand, left facial droop, and difficulty in speaking. - Current Medication List Current Medications: Active Medications Acetaminophen (Tylenol -) 650 mg PO Q6H PRN PRN Reason: PAIN LEVEL 1-5 Last Admin: 12/20/19 21:13 Dose: 650 mg Documented by: Alprazolam (Xanax -) 0.25 mg PO Q8H PRN PRN Reason: ANXIETY Last Admin: 12/21/19 16:36 Dose: 0.25 mg Documented by: Amlodipine Besylate (Norvasc -) 5 mg PO DAILY [facility] Last Admin: 12/21/19 10:15 Dose: 5 mg Documented by: Aspirin (Ecotrin -) 81 mg PO DAILY [facility] Last Admin: 12/21/19 10:15 Dose: 81 mg Documented by: Atorvastatin Calcium (Lipitor -) 80 mg PO HS [facility] Last Admin: 12/21/19 21:04 Dose: 80 mg Documented by: Clopidogrel Bisulfate (Plavix -) 75 mg PO DAILY [facility] Cyanocobalamin (Vitamin B12 -) 1,000 mcg PO DAILY [facility] Last Admin: 12/21/19 10:15 Dose: 1,000 mcg Documented by: - Objective Vital Signs: Vital Signs Temperature 98.1 F 12/22/19 06:00 Pulse Rate 63 12/22/19 06:00 Respiratory Rate 18 12/22/19 06:00 Blood Pressure 133/78 12/22/19 06:00 O2 Sat by Pulse Oximetry (%) 96 12/21/19 22:00 Constitutional: Yes: Well Nourished, No Distress, Calm Eyes: Yes: Conjunctiva Clear, EOM Intact HENT: Yes: Atraumatic, Normocephalic Neck: Yes: Supple, Trachea Midline Cardiovascular: Yes: Regular Rate and Rhythm Respiratory: Yes: Regular, CTA Bilaterally Gastrointestinal: Yes: Normal Bowel Sounds, Soft ...Rectal Exam: Yes: Deferred Genitourinary: Yes: WNL Breast(s): Yes: WNL Musculoskeletal: Yes: WNL Extremities: Yes: WNL Edema: No Peripheral Pulses WNL: Yes Integumentary: Yes: WNL Neurological: Yes: Alert, Oriented, Dysarthria, Facial Droop (left), Numbness (right hand), Unsteady Gait, Weakness ...Motor Strength: RUE (muscle weakness), RLE (muscle weakness) Psychiatric: Yes: Alert, Oriented Labs: CBC, BMP 12/22/19 05:30 12/22/19 05:30 INR, PTT INR 0.92 (0.83-1.09) 12/20/19 08:05 Problem List - Problems (1) Facial droop due to acute stroke Code(s): I63.9 - CEREBRAL INFARCTION, UNSPECIFIED; R29.810 - FACIAL WEAKNESS (3) Right arm weakness Code(s): R29.898 - OTH SYMPTOMS AND SIGNS INVOLVING THE MUSCULOSKELETAL SYSTEM (4) TIA (transient ischemic attack) Code(s): G45.9 - TRANSIENT CEREBRAL ISCHEMIC ATTACK, UNSPECIFIED (5) Essential (primary) hypertension Code(s): I10 - ESSENTIAL (PRIMARY) HYPERTENSION (6) HLD (hyperlipidemia) Code(s): E78.5 - HYPERLIPIDEMIA, UNSPECIFIED Qualifiers: Hyperlipidemia type: pure hypercholesterolemia Qualified Code(s): E78.00 - Pure hypercholesterolemia, unspecified; E78.0 - Pure hypercholesterolemia (7) Migraine with aura Code(s): G43.109 - MIGRAINE WITH AURA, NOT INTRACTABLE, W/O STATUS MIGRAINOSUS (8) Fibromyalgia Code(s): M79.7 - FIBROMYALGIA (9) History of tonsillectomy Code(s): Z90.89 - ACQUIRED ABSENCE OF OTHER ORGANS (10) History of total hysterectomy with bilateral salpingo-oophorectomy (BSO) Code(s): Z90.710 - ACQUIRED ABSENCE OF BOTH CERVIX AND UTERUS; Z90.722 - ACQUIRED ABSENCE OF OVARIES, BILATERAL; Z90.79 - ACQUIRED ABSENCE OF OTHER GENITAL ORGAN(S) (11) Numbness of right hand Code(s): R20.0 - ANESTHESIA OF SKIN Assessment/Plan Assessment/plan: aspirin atorvastatin and clopidigrel for 8mm focus of acute/subacute cortical small vessel infarction of the left parietal lobe; scds for DVT prophylaxis; amlodipine for HTN; atorvastatin for HLD; alprazolam for anxiety; stroke rehab; speech pathology consult for speech and dysphagia eval.
[2019-12-22 09:07] LABS: PLATELET ESTIMATE NORMAL
--- NOTE | 2019-12-22 10:10 | PN ---
Progress Note, Physician History of Present Illness: This 74 yr old w/f with PMH of HTN, HLD, GERD, migraine with aura, fibromyalgia, costochondritis, anxiety admitted with acute right sided weakness, left facial droop and difficulty in speaking since resolved. She was taking aspirin every other day and was advised her that she should be taking aspirin daily for stroke prevention. She denies chest pain, dyspnea, palpitations, near or true syncope, orthopnea, PND, LE edema. Last office visit 05/13/2019. - Current Medication List Current Medications: Active Medications Acetaminophen (Tylenol -) 650 mg PO Q6H PRN PRN Reason: PAIN LEVEL 1-5 Last Admin: 12/20/19 21:13 Dose: 650 mg Documented by: Alprazolam (Xanax -) 0.25 mg PO Q8H PRN PRN Reason: ANXIETY Last Admin: 12/21/19 16:36 Dose: 0.25 mg Documented by: Amlodipine Besylate (Norvasc -) 5 mg PO DAILY [facility] Last Admin: 12/21/19 10:15 Dose: 5 mg Documented by: Aspirin (Ecotrin -) 81 mg PO DAILY [facility] Last Admin: 12/21/19 10:15 Dose: 81 mg Documented by: Atorvastatin Calcium (Lipitor -) 80 mg PO HS [facility] Last Admin: 12/21/19 21:04 Dose: 80 mg Documented by: Clopidogrel Bisulfate (Plavix -) 75 mg PO DAILY [facility] Cyanocobalamin (Vitamin B12 -) 1,000 mcg PO DAILY [facility] Last Admin: 12/21/19 10:15 Dose: 1,000 mcg Documented by: - Objective Vital Signs: Vital Signs Temperature 98.1 F 12/22/19 06:00 Pulse Rate 63 12/22/19 06:00 Respiratory Rate 18 12/22/19 06:00 Blood Pressure 133/78 12/22/19 06:00 O2 Sat by Pulse Oximetry (%) 96 12/21/19 22:00 Constitutional: Yes: No Distress, Calm Neck: Yes: Supple Cardiovascular: Yes: Regular Rate and Rhythm Respiratory: Yes: Regular, CTA Bilaterally Gastrointestinal: Yes: Normal Bowel Sounds, Soft Edema: No Labs: CBC, BMP 12/22/19 05:30 12/22/19 05:30 INR, PTT INR 0.92 (0.83-1.09) 12/20/19 08:05 - ....Imaging EKG: Report Reviewed (Tele: NSR, no PAF) Problem List - Problems (2) Essential (primary) hypertension Code(s): I10 - ESSENTIAL (PRIMARY) HYPERTENSION (3) Facial droop due to acute stroke Code(s): I63.9 - CEREBRAL INFARCTION, UNSPECIFIED; R29.810 - FACIAL WEAKNESS (4) HLD (hyperlipidemia) Code(s): E78.5 - HYPERLIPIDEMIA, UNSPECIFIED Qualifiers: Hyperlipidemia type: pure hypercholesterolemia Qualified Code(s): E78.00 - Pure hypercholesterolemia, unspecified; E78.0 - Pure hypercholesterolemia (5) Right arm weakness Code(s): R29.898 - OTH SYMPTOMS AND SIGNS INVOLVING THE MUSCULOSKELETAL SYSTEM Assessment/Plan 12/20/2019 Carotid US - No sig stenosis 12/20/2019 MRI of brain completed and showed generalized volume loss. White matter chronic small vessels disease. 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 There is no hemorrhage 12/20/[address] was performed and demonstrated no evidence of acute intracranial pathology and moderate periventricular chronic microvascular changes. 05/24/2019: Carotid US: Mild plaque bilaterally 05/23/2019 Echo: Conclusions: 1. LV size is normal. LV thickness is normal. Left ventricular systolic function is normal. There is grade I diastolic dysfunction (grade I of III); filling pressures are normal. 2. Left atrial size is normal. Right atrial size is normal. 3. Right ventricular size is normal. The right ventricular systolic function is normal. 4. The aortic valve is sclerotic without leaflet restriction. Mild aortic insufficiency is present. Aortic root dimension is normal. The ascending aorta is normal. 5. The mitral valve is structurally normal. Mild mitral regurgitation is present. 6. The tricuspid valve is structurally normal. Mild to moderate tricuspid regurgitation is present. The structure of the pulmonic valve is normal. No significant pulmonary regurgitation is present. 7. No pericardial effusion. 8. The pulmonary artery systolic pressure is at least 27 mmHg based on an RA pressure of 3 mmHg. Clinical Correlation/Compared to previous: Compared to previous study on 01/29/18, there is no significant change. 1. Acute/subacute left parietal stroke - pathophysiology of infarct seems to be small vessel and likely atherosclerotic 2. HTN 3. Hyperlipidemia 4. Migraine with aura, fibromyalgia P:1. Continue Norvasc 5 qd, ASA 81 qd, Lipitor 80 qhs, Plavix 75 qd added (may not be necessary as patient was underdosing ASA and not considered ASA failure) 2. monitor and storage bin tender to evaluate for PAF, if unrevealing, may benefit from longer term arrhythmia monitor 3. Speech and swallow and physical therapy appreciated 4. Eventual f/u with Dr. Nolasco in office
--- NOTE | 2019-12-22 10:12 | PN ---
Progress Note, [employer] - Note Progress Note: Selected Entries 12/21/19 12/21/19 12/22/19 14:00 22:09 02:00 Breakfast 100% Diet Tolerated Lunch 100% Supper 100% Temperature 98.0 F Pulse Rate 89 Blood Pressure 117/66 12/22/19 12/22/19 06:00 10:03 Breakfast 100% Diet Tolerated Well Lunch Supper Temperature 98.1 F Pulse Rate 63 Blood Pressure 133/78 Laboratory Tests 12/22/19 05:30 WBC 8.0 [id number] functional language and facial symmetry. Pt concerned, anxious. Provided comfort, counseling, suggest CBT tx upon d/c. Consider Psych consult
[2019-12-22] MEDS: ASPIRIN COATED 81 MG TABLET.EC PO SCH (10:19)
[2019-12-22] MEDS: CLOPIDOGREL BISULFATE 75 MG TABLET (FP) PO SCH (10:19)
[2019-12-22] MEDS: amLODIPine BESYLATE 5 MG TABLET (FP) PO SCH (10:19)
[2019-12-22] MEDS: CYANOCOBALAMIN 1,000 MCG TABLET (FP) PO SCH (10:19)
[2019-12-22] MEDS: ALPRAZolam 0.25 MG TABLET PO PRN (19:09)
[2019-12-22] MEDS: ATORVASTATIN CA 80 MG TABLET (FP) PO SCH (21:50)
--- NOTE | 2019-12-23 07:58 | PN ---
Progress Note, Physician History of Present Illness: This 74 yr old w/f with PMH of HTN, HLD, GERD, migraine with aura, fibromyalgia, costochondritis, anxiety admitted with acute right sided weakness, left facial droop and difficulty in speaking since resolved. She was taking aspirin every other day and was advised her that she should be taking aspirin daily for stroke prevention. She denies chest pain, dyspnea, palpitations, near or true syncope, orthopnea, PND, LE edema. Last office visit 05/13/2019. - Current Medication List Current Medications: Active Medications Acetaminophen (Tylenol -) 650 mg PO Q6H PRN PRN Reason: PAIN LEVEL 1-5 Last Admin: 12/20/19 21:13 Dose: 650 mg Documented by: Alprazolam (Xanax -) 0.25 mg PO Q8H PRN PRN Reason: ANXIETY Last Admin: 12/22/19 19:09 Dose: 0.25 mg Documented by: Amlodipine Besylate (Norvasc -) 5 mg PO DAILY [facility] Last Admin: 12/22/19 10:19 Dose: 5 mg Documented by: Aspirin (Ecotrin -) 81 mg PO DAILY [facility] Atorvastatin Calcium (Lipitor -) 80 mg PO HS [facility] Last Admin: 12/22/19 21:50 Dose: 80 mg Documented by: Clopidogrel Bisulfate (Plavix -) 75 mg PO DAILY [facility] Last Admin: 12/22/19 10:19 Dose: Not Given Documented by: Cyanocobalamin (Vitamin B12 -) 1,000 mcg PO DAILY [facility] Last Admin: 12/22/19 10:19 Dose: 1,000 mcg Documented by: - Objective Vital Signs: Vital Signs Temperature 97.8 F 12/23/19 06:00 Pulse Rate 66 12/23/19 06:00 Respiratory Rate 18 12/23/19 06:00 Blood Pressure 125/78 12/23/19 06:00 O2 Sat by Pulse Oximetry (%) 96 12/23/19 06:00 Constitutional: Yes: No Distress, Calm Neck: Yes: Supple Cardiovascular: Yes: Regular Rate and Rhythm Respiratory: Yes: Regular, CTA Bilaterally Gastrointestinal: Yes: Normal Bowel Sounds, Soft Edema: No Labs: CBC, BMP 12/22/19 05:30 12/22/19 05:30 INR, PTT INR 0.92 (0.83-1.09) 12/20/19 08:05 Problem List - Problems (2) Essential (primary) hypertension Code(s): I10 - ESSENTIAL (PRIMARY) HYPERTENSION (3) Facial droop due to acute stroke Code(s): I63.9 - CEREBRAL INFARCTION, UNSPECIFIED; R29.810 - FACIAL WEAKNESS (4) HLD (hyperlipidemia) Code(s): E78.5 - HYPERLIPIDEMIA, UNSPECIFIED Qualifiers: Hyperlipidemia type: pure hypercholesterolemia Qualified Code(s): E78.00 - Pure hypercholesterolemia, unspecified; E78.0 - Pure hypercholesterolemia (5) Right arm weakness Code(s): R29.898 - OT SYMPTOMS AND SIGNS INVOLVING THE MUSCULOSKELETAL SYSTEM Assessment/Plan 12/20/2019 Carotid US - No sig stenosis 12/20/2019 MRI of brain completed and showed generalized volume loss. White matter chronic small vessels disease. 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 There is no hemorrhage 12/20/[address] was performed and demonstrated no evidence of acute intracranial pathology and moderate periventricular chronic microvascular changes. 05/24/2019: Carotid US: Mild plaque bilaterally 05/23/2019 Echo: Conclusions: 1. LV size is normal. LV thickness is normal. Left ventricular systolic function is normal. There is grade I diastolic dysfunction (grade I of III); filling pressures are normal. 2. Left atrial size is normal. Right atrial size is normal. 3. Right ventricular size is normal. The right ventricular systolic function is normal. 4. The aortic valve is sclerotic without leaflet restriction. Mild aortic insufficiency is present. Aortic root dimension is normal. The ascending aorta is normal. 5. The mitral valve is structurally normal. Mild mitral regurgitation is present. 6. The tricuspid valve is structurally normal. Mild to moderate tricuspid regurgitation is present. The structure of the pulmonic valve is normal. No significant pulmonary regurgitation is present. 7. No pericardial effusion. 8. The pulmonary artery systolic pressure is at least 27 mmHg based on an RA pressure of 3 mmHg. Clinical Correlation/Compared to previous: Compared to previous study on 01/29/18, there is no significant change. 1. Acute/subacute left parietal stroke - pathophysiology of infarct seems to be small vessel and likely atherosclerotic 2. HTN 3. Hyperlipidemia 4. Migraine with aura, fibromyalgia P:1. Continue Norvasc 5 qd, ASA 81 qd, Lipitor 80 qhs, Plavix 75 qd added (may not be necessary as patient was underdosing ASA and not considered ASA failure). MONIQUE-I/ARB as hemodynamics tolerate 2. 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 Speech and swallow and physical therapy appreciated 4. Eventual f/u with Dr. Nolasco in office
--- NOTE | 2019-12-23 08:49 | PN ---
Progress Note (short form) - Note Progress Note: Neurology Chief Complaint: Acute right arm numbness, facial droop and difficulty in speaking History of Present Illness: This 74 yr old w/f with PMH of HTN, HLD, GERD, migraine with aura, fibromyalgia, costochondritis, anxiety admitted with an acute right sided weakness, left facial droop and difficulty in speaking. Head Ct was performed and demonstrated no evidence of acute intracranial pathology and moderate periventricular chronic microvascular changes. MRI of brain completed and showed generalized volume loss. WM chronic small vessels disease. 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 There is no hemorrhage. Carotid U/S also completed and demonstrated mild atherosclerotid disease w/o HD stenosis. Patient is very anxious aat baseline and discussed with her pathophysiology of infarct which seems to be small vessel and likely atherosclerotic. Workup is completed to rule out possible embolic phenomenon but based on size and location seems to be more likely localized small vessel infarct. She was taking aspirin only 3 times a week and advised her that she should be taking aspirin daily for stroke prevention. She reported receiving Plavix which remains on med list, PATIENT IS NOT CONSIDERED ASA FAILURE my recommendation is for daily aspirin and I don't believe second antiplatelet is needed. Defer to hospitalist on final med list. We had an extensive conversation about her anxiety as this is likely elevating her blood pressure and I recommended continued monitoring and ideally improvement of the her underlying condition. Active Medications Acetaminophen (Tylenol -) 650 mg PO Q6H PRN PRN Reason: PAIN LEVEL 1-5 Last Admin: 12/20/19 21:13 Dose: 650 mg Documented by: Alprazolam (Xanax -) 0.25 mg PO Q8H PRN PRN Reason: ANXIETY Last Admin: 12/22/19 19:09 Dose: 0.25 mg Documented by: Amlodipine Besylate (Norvasc -) 5 mg PO DAILY [facility] Last Admin: 12/22/19 10:19 Dose: 5 mg Documented by: Aspirin (Ecotrin -) 81 mg PO DAILY [facility] Atorvastatin Calcium (Lipitor -) 80 mg PO HS [facility] Last Admin: 12/22/19 21:50 Dose: 80 mg Documented by: Clopidogrel Bisulfate (Plavix -) 75 mg PO DAILY [facility] Last Admin: 12/22/19 10:19 Dose: Not Given Documented by: Cyanocobalamin (Vitamin B12 -) 1,000 mcg PO DAILY [facility] Last Admin: 12/22/19 10:19 Dose: 1,000 mcg Documented by: Physical Examination Vital Signs: Vital Signs Period Temp Pulse Resp BP Sys/Espinoza Pulse Ox Last 24 Hr 97.5 F-98.3 F 66-83 18-20 114-127/56-87 95-100 Constitutional: Yes: Well Nourished, No Distress, Anxious Eyes: Yes: Conjunctiva Clear, EOM Intact HENT: Yes: Atraumatic, Normocephalic Neck: Yes: Supple, Trachea Midline Cardiovascular: Yes: Regular Rate and Rhythm Respiratory: Yes: Regular, CTA Bilaterally Gastrointestinal: Yes: Normal Bowel Sounds, Soft ...Rectal Exam: Yes: Deferred Renal/: Yes: WNL Breast(s): Yes: WNL Musculoskeletal: Yes: Muscle Weakness (right arm) Extremities: Yes: WNL Edema: Yes Edema: LLE: Trace, RLE: Trace Peripheral Pulses WNL: Yes Integumentary: Yes: WNL Neurological: CN appear intact, face appears symetric, subjective numbness in the right hand, strength intact bilaterally in upper and lower extremities, finger-nose normal Psychiatric: Yes: Alert, Oriented Labs: CBCD WBC 8.0 K/mm3 (4.0-10.0) 12/22/19 05:30 RBC 4.87 M/mm3 (3.60-5.2) 12/22/19 05:30 Hgb 14.3 GM/dL (10.7-15.3) 12/22/19 05:30 Hct 42.3 % (32.4-45.2) 12/22/19 05:30 MCV 86.8 fl (80-96) 12/22/19 05:30 MCHC 33.9 g/dl (32.0-36.0) 12/22/19 05:30 RDW 13.7 % (11.6-15.6) 12/22/19 05:30 Plt Count 269 K/MM3 (134-434) 12/22/19 05:30 MPV 8.1 fl (7.5-11.1) D 12/22/19 05:30 CMP Sodium 143 mmol/L (136-145) 12/22/19 05:30 Potassium 4.7 mmol/L (3.5-5.1) 12/22/19 05:30 Chloride 109 mmol/L (98-107) H 12/22/19 05:30 Carbon Dioxide 27 mmol/L (21-32) 12/22/19 05:30 Anion Gap 7 MMOL/L (8-16) L 12/22/19 05:30 BUN 17.6 mg/dL (7-18) 12/22/19 05:30 Creatinine 0.8 mg/dL (0.55-1.3) 12/22/19 05:30 Random Glucose 83 mg/dL (74-106) 12/22/19 05:30 Calcium 9.5 mg/dL (8.5-10.1) 12/22/19 05:30 Total Bilirubin 1.2 mg/dL (0.2-1) H 12/22/19 05:30 AST 57 U/L (15-37) H 12/22/19 05:30 ALT 23 U/L (13-61) 12/22/19 05:30 Alkaline Phosphatase 94 U/L (45-117) 12/22/19 05:30 Total Protein 7.0 g/dl (6.4-8.2) 12/22/19 05:30 Albumin 3.4 g/dl (3.4-5.0) 12/22/19 05:30 CARDIAC ENZYMES Creatine Kinase 102 U/L (26-192) 12/20/19 08:05 Troponin I < 0.02 ng/ml (0.00-0.05) 12/20/19 08:05 Assessment/Plan 74 yr old w/f with PMH of HTN, HLD, GERD, migraine with aura, fibromyalgia, costochondritis, anxiety admitted with an acute right sided weakness, left facial droop and difficulty in speaking. Head Ct was performed and demonstrated no evidence of acute intracranial pathology and moderate periventricular chronic microvascular changes. MRI of brain completed and showed generalized volume loss. WM chronic small vessels disease. 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 There is no hemorrhage. Carotid U/S also completed and demonstrated mild atherosclerotid disease w/o HD stenosis. Patient is very anxious aat baseline and discussed with her pathophysiology of infarct which seems to be small vessel and likely atherosclerotic. Workup is completed to rule out possible embolic phenomenon but based on size and location seems to be more likely localized small vessel infarct. She was taking aspirin only 3 times a week and advised her that she should be taking aspirin daily for stroke prevention. Only needs daily ASA 81mg as antiplatelet, from neurologic perspective. Defer to hospitalist regarding final medication list. We had an extensive conversation about her anxiety as this is likely elevating her blood pressure and I recommended continued monitoring and ideally improvement of the her underlying condition. Physical therapy aas tolerated. Medication compliance recommended. Monitor blood pressure, Goal<130/90 as outpatient. Anxiety optimization recommended, takes Xanax.
--- NOTE | 2019-12-23 09:36 | DS ---
Physical Examination Vital Signs: Vital Signs Temperature 97.8 F 12/23/19 06:00 Pulse Rate 66 12/23/19 06:00 Respiratory Rate 18 12/23/19 06:00 Blood Pressure 125/78 12/23/19 06:00 O2 Sat by Pulse Oximetry (%) 96 12/23/19 06:00 Constitutional: Yes: Well Nourished, No Distress, Anxious Eyes: Yes: Conjunctiva Clear, EOM Intact HENT: Yes: Atraumatic, Normocephalic Neck: Yes: Supple, Trachea Midline Cardiovascular: Yes: Regular Rate and Rhythm Respiratory: Yes: Regular, CTA Bilaterally Gastrointestinal: Yes: Normal Bowel Sounds, Soft ...Rectal Exam: Yes: Deferred Renal/: Yes: WNL Breast(s): Yes: WNL Musculoskeletal: Yes: WNL Edema: No Peripheral Pulses WNL: Yes Integumentary: Yes: WNL Neurological: Yes: Alert, Oriented ...Motor Strength: WNL Psychiatric: Yes: WNL Labs: CBC, BMP 12/22/19 05:30 12/22/19 05:30 Discharge Summary Problems reviewed: Yes Reason For Visit: TIA Current Active Problems Difficulty speaking (Acute) Essential (primary) hypertension (Acute) Facial droop due to acute stroke (Acute) Fibromyalgia (Acute) HLD (hyperlipidemia) (Acute) History of tonsillectomy (Acute) History of total hysterectomy with bilateral salpingo-oophorectomy (BSO) (Acute) Migraine with aura (Acute) Numbness of right hand (Acute) Right arm weakness (Acute) TIA (transient ischemic attack) (Acute) Condition: Fair - Instructions Diet, Activity, Other Instructions: Diagnosis: 8mm focus of acute/subacute cortical small vessel infarction of the left parietal lobe. Continue on enteric coated aspirin 81mg orally daily. Clopidogrel 75mg orally daily for next 17 days. Atorvastatin 80mg po qhs for 30 days. Vitamin b12 1000mcg orally daily. Activity as tolerated. Xanax 0.5mg orally q8h as needed for anxiety. Calm environment highly recommended. Follow up with Dr. Morgan in one week. Total time spent over 30 minutes. Referrals: Candy Morgan MD [Primary Care Provider] - - Home Medications Comprehensive Discharge Medication List: Ambulatory Orders Amlodipine Besylate [Norvasc -] 0 mg PO DAILY 12/20/19 Aspirin 81 mg PO Q4HWA 12/20/19 Atorvastatin Ca [Lipitor] 0 mg PO HS 12/20/19 Pantoprazole Sodium [Protonix] 40 mg PO PRN 12/20/19 Aspirin Coated [Ecotrin -] 81 mg PO DAILY #30 tablet.ec 12/23/19
[2019-12-23] MEDS ORDERED: ALPRAZolam 0.25 MG TABLET PO PRN (09:38)
[2019-12-23] MEDS: amLODIPine BESYLATE 5 MG TABLET (FP) PO SCH (09:47)
[2019-12-23] MEDS: CLOPIDOGREL BISULFATE 75 MG TABLET (FP) PO SCH (09:47)
[2019-12-23] MEDS: CYANOCOBALAMIN 1,000 MCG TABLET (FP) PO SCH (09:47)
[2019-12-23] MEDS ORDERED: ASPIRIN COATED 81 MG TABLET.EC PO SCH (10:00)
[2019-12-23 15:07] VITALS: BP 117/75; PULSE 83; TEMP 97.8
== END 2019-12-23 17:51 | disposition home or self-care (01) | DRG 66 ==
LOC: JER 06:36 → SUPCPDRO 06:36 → JERBED 09:40 → J4S 20:04
PROVIDERS: ADMIT Internal Medicine; ATTEND Internal Medicine
DX: I63.9 Cerebral infarction, unspecified (principal); R29.700 NIHSS score 0; I10 Essential (primary) hypertension; E78.5 Hyperlipidemia, unspecified; R20.0 Anesthesia of skin; M79.7 Fibromyalgia; F41.9 Anxiety disorder, unspecified; G43.109 Migraine with aura, not intractable, without status migrainosus; K21.9 Gastro-esophageal reflux disease without esophagitis; M94.0 Chondrocostal junction syndrome [Tietze]; R29.810 Facial weakness; Z90.89 Acquired absence of other organs; Z90.710 Acquired absence of both cervix and uterus
CPT/HCPCS: 36415; 70450-TC; 70551-TC; 71046-TC-FY; 80053; 80061; 82550; 82607; 83721; 84484; 85025; 85610; 85730; 93005; 93010; 93880-TC; 93970-TC; 97116-GP; 97161-GP; 99285-25; U0003

== ENCOUNTER 2021-12-23 04:05 | Day surgery (SDC) | payer OTHER, MEDICARE ==
[2021-12-19 15:49] VITALS: BMI 28.6
[2021-12-23 07:38] VITALS: RESP 18
[2021-12-23] MEDS ORDERED: BUPIVACAINE HCL/PF 0.5% (5MG/ML) 10 ML VIAL ONE (07:48)
[2021-12-23] MEDS ORDERED: LIDOCAINE HCL 1%, 10 MG/ML (20ML VIAL) ONE (07:48)
[2021-12-23] MEDS ORDERED: PROPOFOL 20 ML ONE (10:08)
[2021-12-23] MEDS ORDERED: MIDAZOLAM HCL 2 MG/2 ML SINGLE DOSE VIAL ONE (10:08)
[2021-12-23] MEDS ORDERED: ceFAZolin SODIUM 1 GM VIAL IVPB ONE (10:40)
[2021-12-23] MEDS ORDERED: ceFAZolin SODIUM 1 GM VIAL ONE (10:41)
[2021-12-23] MEDS ORDERED: LIDOCAINE HCL/PF (2%) 40 MG/2 ML VIAL ONE (10:45)
[2021-12-23] MEDS ORDERED: ONDANSETRON 4 MG/2 ML VIAL IVPUSH PRN (10:48)
[2021-12-23] MEDS ORDERED: oxyCODONE HCL 5 MG TABLET PO PRN (10:48)
[2021-12-23] MEDS ORDERED: LIDOCAINE HCL 1%, 10 MG/ML (20ML VIAL) NR ONE ×2 (10:50)
[2021-12-23] MEDS ORDERED: BUPIVACAINE HCL/PF 0.5% (5MG/ML) 10 ML VIAL IJ ONE ×2 (10:50)
[2021-12-23] MEDS ORDERED: LACTATED RINGERS SOLUTION 1,000 ML IV SCH (11:00)
[2021-12-23 13:00] VITALS: BP 143/70; PULSE 71; TEMP 97.2
== END 2021-12-23 14:00 | disposition home or self-care (01) ==
LOC: JASU-SURG 04:05
PROVIDERS: ATTEND Orthopaedic Surgery
PROC: 01N50ZZ Release Median Nerve, Open Approach (ICD-10-PCS; principal; 2021-12-23 09:30)
DX: G56.01 Carpal tunnel syndrome, right upper limb (principal)
CPT/HCPCS: 88304-TC

== ENCOUNTER 2022-09-02 04:11 | Day surgery (SDC) | payer OTHER, MEDICARE ==
[2022-09-01 10:33] VITALS: BMI 27.8
[2022-09-02 09:56] VITALS: TEMP 98
[2022-09-02 10:36] VITALS: BP 126/72; PULSE 64; RESP 16
== END 2022-09-02 12:15 | disposition home or self-care (01) ==
LOC: JASU-ENDO 04:11
PROVIDERS: ATTEND Internal Medicine Gastroenterology
PROC: 0DBN8ZX Excision of Sigmoid Colon, Via Natural or Artificial Opening Endoscopic, Diagnostic (ICD-10-PCS; 2022-09-02)
PROC: 0DBM8ZX Excision of Descending Colon, Via Natural or Artificial Opening Endoscopic, Diagnostic (ICD-10-PCS; 2022-09-02)
PROC: 0DBH8ZX Excision of Cecum, Via Natural or Artificial Opening Endoscopic, Diagnostic (ICD-10-PCS; 2022-09-02)
PROC: 0DB98ZX Excision of Duodenum, Via Natural or Artificial Opening Endoscopic, Diagnostic (ICD-10-PCS; 2022-09-02)
PROC: 0DB78ZX Excision of Stomach, Pylorus, Via Natural or Artificial Opening Endoscopic, Diagnostic (ICD-10-PCS; 2022-09-02)
PROC: 0DB68ZX Excision of Stomach, Via Natural or Artificial Opening Endoscopic, Diagnostic (ICD-10-PCS; 2022-09-02)
PROC: 0DB48ZX Excision of Esophagogastric Junction, Via Natural or Artificial Opening Endoscopic, Diagnostic (ICD-10-PCS; 2022-09-02)
PROC: 0DBK8ZX Excision of Ascending Colon, Via Natural or Artificial Opening Endoscopic, Diagnostic (ICD-10-PCS; principal; 2022-09-02 10:15)
DX: Z12.11 Encounter for screening for malignant neoplasm of colon (principal); K63.5 Polyp of colon; K64.8 Other hemorrhoids; K57.30 Diverticulosis of large intestine without perforation or abscess without bleeding; K44.9 Diaphragmatic hernia without obstruction or gangrene; K21.00 Gastro-esophageal reflux disease with esophagitis, without bleeding; K29.50 Unspecified chronic gastritis without bleeding; Z86.010 Personal history of colon polyps; I10 Essential (primary) hypertension
CPT/HCPCS: 88305-TC; 88342-TC

== ENCOUNTER 2022-09-23 17:55 | Inpatient (IN) | payer OTHER, MEDICARE ==
[2022-09-23 18:27] LABS: HEMATOCRIT 44.8 % (32.4-45.2); HEMOGLOBIN 15.3 GM/dL (10.7-15.3); MCHC 34.1 g/dl (32.0-36.0); MEAN CELL VOLUME 85.2 fl (80-96); PLATELET COUNT 339 10^3/uL (134-434); RBC 5.26 M/mm3 (3.60-5.2); RDW 14.3 % (11.6-15.6); WHITE BLOOD COUNT 11.4 K/mm3 (4.0-10.0)
[2022-09-23 18:31] VITALS: BMI 30.2
[2022-09-23 18:37] LABS: INR 0.87 (0.83-1.09); PROTHROMBIN TIME (PATIENT) 10.1 SEC (9.7-13.0)
[2022-09-23 18:40] LABS: ACTIVATED PTT 31.8 SECONDS (25.2-36.5)
[2022-09-23] MEDS ORDERED: CLOPIDOGREL BISULFATE 75 MG TABLET (FP) PO ONE (18:47)
[2022-09-23] MEDS ORDERED: ATORVASTATIN CA 80 MG TABLET (FP) PO ONE (18:49)
[2022-09-23 18:50] LABS: POTASSIUM 3.3 mmol/L (3.5-5.1)
[2022-09-23 18:52] LABS: ALBUMIN 4.2 g/dl (3.4-5.0)
[2022-09-23 18:53] LABS: BLOOD UREA NITROGEN 15.4 mg/dL (7-18)
[2022-09-23] MEDS ORDERED: LORazepam 2 MG/ML SDV VIAL IVPB ONE (18:54)
[2022-09-23 18:57] LABS: TOT PROT 7.9 g/dl (6.4-8.2)
[2022-09-23 18:58] LABS: BILIRUBIN,TOTAL 0.6 mg/dL (0.2-1)
[2022-09-23 19:29] LABS: EPI CELLS 33 /uL (0-25.1); HYALINE CASTS 0 /uL (0-3.1); PH,URINE 6.5 (5.0-8.0); URINE APPEARANCE CLEAR; URINE BACTERIA 167 /uL (0-1359); URINE BILIRUBIN NEGATIVE (NEGATIVE); URINE COLOR YELLOW; URINE GLUCOSE (UA) NEGATIVE (NEGATIVE); URINE KETONE NEGATIVE (NEGATIVE); URINE LEUK ESTERASE 1+ (NEGATIVE); URINE NITRITE NEGATIVE (NEGATIVE); URINE PROTEIN NEGATIVE (NEGATIVE); URINE RBC 7 /uL (0-23.9); URINE UROBILINOGEN 0.2 mg/dL (0.2-1.0); URINE WBC 46 /uL (0-25.8)
[2022-09-23] MEDS ORDERED: ATORVASTATIN CA 80 MG TABLET (FP) ONE (19:54)
[2022-09-23] MEDS ORDERED: CLOPIDOGREL BISULFATE 75 MG TABLET (FP) ONE (19:55)
[2022-09-23 20:35] LABS: ANISOCYTOSIS 0; HELMET CELLS 0; HOWELL-JOLLY BODIES 0; MACROCYTOSIS 0; OVALOCYTE 0; PLATELET ESTIMATE NORMAL; ROULEAU 0; SICKELED CELLS 0; TARGET CELLS 0; TEAR DROP CELLS 0; TOXIC GRANULATION 0
[2022-09-23] MEDS: ASPIRIN COATED 81 MG TABLET.EC PO SCH (22:29)
[2022-09-23] MEDS ORDERED: PANTOPRAZOLE 40 MG TABLET PO ONE (22:50)
[2022-09-23] MEDS: SODIUM CHLORIDE 1,000 ML IV SCH (22:53)
[2022-09-23] MEDS: PANTOPRAZOLE 40 MG TABLET PO SCH (22:53)
[2022-09-23] MEDS ORDERED: LORazepam 2 MG/ML SDV VIAL IVPUSH PRN (23:01)
[2022-09-23] MEDS ORDERED: ACETAMINOPHEN 325 MG TABLET (FP) PO PRN (23:04)
[2022-09-23] MEDS ORDERED: LORazepam 2 MG/ML SDV VIAL IVPUSH ONE (23:05)
[2022-09-23] MEDS ORDERED: KCL 10 MEQ IVPB 10 MEQ/100 ML INFUS.BAG IVPB ONE (23:34)
[2022-09-24] MEDS ORDERED: KCL 10 MEQ IVPB 10 MEQ/100 ML INFUS.BAG IVPB SCH
[2022-09-24] MEDS ORDERED: POTASSIUM CHLORIDE TABS 20 MEQ TABLET.ER (FP) PO ONE ×2 (01:00→23:11)
[2022-09-24 07:27] LABS: BASO % 0.9 % (0-2.0); EOS % 4.4 % (0-4.5); HEMATOCRIT 42.8 % (32.4-45.2); HEMOGLOBIN 14.2 GM/dL (10.7-15.3); MCH 28.7 pg (25.7-33.7); MCHC 33.2 g/dl (32.0-36.0); MEAN CELL VOLUME 86.5 fl (80-96); MEAN PLT VOLUME 7.2 fl (7.5-11.1); MONO % 9.3 % (3.8-10.2); NEUT % 55.4 % (42.8-82.8); PLATELET COUNT 275 10^3/uL (134-434); RBC 4.94 M/mm3 (3.60-5.2); RDW 14.5 % (11.6-15.6)
[2022-09-24 07:44] LABS: POTASSIUM 3.9 mmol/L (3.5-5.1)
[2022-09-24 07:47] LABS: BLOOD UREA NITROGEN 12.9 mg/dL (7-18); CALCIUM 8.9 mg/dL (8.5-10.1)
[2022-09-24 07:49] LABS: ALBUMIN 3.4 g/dl (3.4-5.0)
[2022-09-24 07:52] LABS: CREATININE 0.8 mg/dL (0.55-1.3)
[2022-09-24 07:53] LABS: TOT PROT 6.4 g/dl (6.4-8.2)
[2022-09-24] MEDS: ALPRAZolam 0.25 MG TABLET PO SCH ×3 (10:00→22:22)
[2022-09-24] MEDS ORDERED: ALPRAZolam 0.25 MG TABLET PO SCH (10:00)
[2022-09-24] MEDS: ASCORBIC ACID 500 MG TABLET (FP) PO SCH (10:49)
[2022-09-24] MEDS: CLOPIDOGREL BISULFATE 75 MG TABLET (FP) PO SCH (10:49)
[2022-09-24] MEDS: PANTOPRAZOLE 40 MG TABLET PO SCH (10:50)
[2022-09-24] MEDS: ASPIRIN COATED 81 MG TABLET.EC PO SCH (10:50)
[2022-09-24] MEDS: CYANOCOBALAMIN (VITAMIN B-12) 100 MCG TABLET PO SCH (12:21)
[2022-09-24] MEDS: SODIUM CHLORIDE 1,000 ML IV SCH (18:00)
[2022-09-24] MEDS: ATORVASTATIN CA 80 MG TABLET (FP) PO SCH (22:22)
[2022-09-25 08:12] LABS: POTASSIUM 4.2 mmol/L (3.5-5.1)
[2022-09-25 08:24] LABS: BLOOD UREA NITROGEN 17.4 mg/dL (7-18); CALCIUM 8.8 mg/dL (8.5-10.1)
[2022-09-25 08:29] LABS: CREATININE 0.8 mg/dL (0.55-1.3)
[2022-09-25] MEDS: ASPIRIN COATED 81 MG TABLET.EC PO SCH (10:10)
[2022-09-25] MEDS: CLOPIDOGREL BISULFATE 75 MG TABLET (FP) PO SCH (10:10)
[2022-09-25] MEDS: CYANOCOBALAMIN (VITAMIN B-12) 100 MCG TABLET PO SCH (10:10)
[2022-09-25] MEDS: PANTOPRAZOLE 40 MG TABLET PO SCH (10:10)
[2022-09-25] MEDS: amLODIPine BESYLATE 2.5 MG TABLET (FP) PO SCH (10:10)
[2022-09-25] MEDS: ALPRAZolam 0.25 MG TABLET PO SCH ×2 (10:10→21:56)
[2022-09-25] MEDS: ASCORBIC ACID 500 MG TABLET (FP) PO SCH (10:10)
[2022-09-25] MEDS: FAMOTIDINE 20 MG TABLET PO SCH (21:56)
[2022-09-25] MEDS: ATORVASTATIN CA 80 MG TABLET (FP) PO SCH (21:56)
[2022-09-26 06:13] VITALS: PULSE 66
[2022-09-26 08:01] LABS: POTASSIUM 3.9 mmol/L (3.5-5.1)
[2022-09-26 08:07] LABS: BLOOD UREA NITROGEN 20.4 mg/dL (7-18); CALCIUM 9.4 mg/dL (8.5-10.1)
[2022-09-26 08:09] LABS: ALBUMIN 3.2 g/dl (3.4-5.0)
[2022-09-26 08:11] LABS: BILIRUBIN,TOTAL 0.8 mg/dL (0.2-1)
[2022-09-26 08:13] LABS: TOT PROT 6.2 g/dl (6.4-8.2)
[2022-09-26] MEDS ORDERED: LORazepam 2 MG/ML SDV VIAL IVPUSH PRN (08:56)
[2022-09-26] MEDS: CLOPIDOGREL BISULFATE 75 MG TABLET (FP) PO SCH (09:50)
[2022-09-26] MEDS: ASCORBIC ACID 500 MG TABLET (FP) PO SCH (09:51)
[2022-09-26] MEDS: ASPIRIN COATED 81 MG TABLET.EC PO SCH (09:51)
[2022-09-26] MEDS: ALPRAZolam 0.25 MG TABLET PO SCH (09:51)
[2022-09-26] MEDS: FAMOTIDINE 20 MG TABLET PO SCH (09:51)
[2022-09-26] MEDS: amLODIPine BESYLATE 2.5 MG TABLET (FP) PO SCH (09:52)
[2022-09-26] MEDS: CYANOCOBALAMIN (VITAMIN B-12) 100 MCG TABLET PO SCH (09:52)
[2022-09-26 10:11] VITALS: RESP 20; TEMP 98.5
[2022-09-26 10:12] VITALS: BP 138/89
== END 2022-09-26 11:59 | DRG 66 ==
LOC: JER 17:55 → JERBED 20:53 → J4W 09-24 00:07
PROVIDERS: ADMIT Internal Medicine; ATTEND Internal Medicine
DX: I63.89 Other cerebral infarction (principal); R47.01 Aphasia; R29.704 NIHSS score 4; E78.5 Hyperlipidemia, unspecified; K21.9 Gastro-esophageal reflux disease without esophagitis; M79.7 Fibromyalgia; E87.6 Hypokalemia; F41.9 Anxiety disorder, unspecified; R29.810 Facial weakness; R29.898 Other symptoms and signs involving the musculoskeletal system; I10 Essential (primary) hypertension; K76.0 Fatty (change of) liver, not elsewhere classified; G43.109 Migraine with aura, not intractable, without status migrainosus; D72.829 Elevated white blood cell count, unspecified; Z90.79 Acquired absence of other genital organ(s)
CPT/HCPCS: 36415; 70450-TC; 70496-TC; 70498-TC; 70551-TC; 80048; 80053; 80061; 81003; 82550; 82553; 82962; 83036; 84484; 85025; 85610; 85730; 86850; 86900; 86901; 87086; 93005; 93010; 97116-GP; 97162-GP; 99285-25; Q9967